=== PATIENT | female | born 2005 | race Two or more races ===

== ENCOUNTER 2025-03-02 10:10 | Emergency (ER) | payer MEDICAID ==
[~2025-03-02] VITALS: Ht 162.6 cm; Wt 58.3 kg
[2025-03-02 10:13] VITALS: TEMP 97.3
[2025-03-02 10:39] LABS: BASOPHILS % (AUTO) 0.1 % (0-1); EOSINOPHILS % (AUTO) 0.2 % (0-6); HEMATOCRIT 40.7 % (35.0-45.0); HEMOGLOBIN 13.7 g/dl (12.0-16.0); LYMPHOCYTES # (AUTO) 1.7 X10'3 (1.1-4.8); LYMPHOCYTES % (AUTO) 16.4 % (21-51); MEAN CORPUSCULAR HEMOGLOBIN 29.3 PG (27.0-31.0); MEAN CORPUSCULAR HGB CONC 33.6 g/dL (33.0-36.5); MONOCYTES # (AUTO) 0.6 X10'3 (0-0.9); MONOCYTES % (AUTO) 5.6 % (2-12); NEUTROPHILS # (AUTO) 8.3 X10'3 (1.8-7.7); NEUTROPHILS % (AUTO) 77.7 % (42-75); PLATELET COUNT 252 X10'3 (140-440); RED BLOOD COUNT 4.68 X10'6 (4.20-5.60); WHITE BLOOD COUNT 10.7 X10'3 (4.5-11.0)
[2025-03-02 10:43] LABS: BILIRUBIN,URINE MODERATE (Neg); CLARITY,URINE CLOUDY (Clear); COLOR,URINE YELLOW (Yellow); GLUCOSE, URINE NEGATIVE (Neg); KETONES,URINE 40 mg/dl (Neg); LEUKOCYTE ESTERASE ,URINE TRACE (Neg); OCCULT BLOOD,URINE NEGATIVE (Neg); PH,URINE 6.5 (4.8-8.0); PROTEIN,URINE 100 mg/dl (Neg)
[2025-03-02 10:49] LABS: NITRITES, URINE NEGATIVE (Neg); UA COLLECTION TYPE CLN CATCH MIDSTREAM
[2025-03-02 10:50] LABS: RBC,URINE 0-2 /HPF (0-2)
[2025-03-02 10:51] LABS: AMORPHOUS URATES 3+; BACTERIA,URINE 1+ /HPF (Neg); MUCUS STRANDS MANY /LPF (Neg); SQUAMOUS EPITHELIAL CELL,UR FEW /LPF (FEW)
[2025-03-02 10:54] LABS: URINE HCG POSITIVE (NEG)
[2025-03-02 11:01] LABS: ALANINE AMINOTRANSFERASE 31 U/L (12-78); ALBUMIN 3.5 G/DL (3.4-5.0); ALBUMIN/GLOBULIN RATIO 0.8 (1.1-1.5); ALKALINE PHOSPHATASE 90 IU/L (46-116); ANION GAP 12 (8-16); ASPARTATE AMINO TRANSFERASE 15 U/L (10-37); BILIRUBIN,TOTAL 0.8 MG/DL (0.1-1.0); BLOOD UREA NITROGEN 5 MG/DL (7-18); BUN/CREATININE RATIO 8.5 (10.0-20.0); CALCIUM 9.4 MG/DL (8.5-10.1); CHLORIDE 104 MMOL/L (99-107); CREATININE 0.59 MG/DL (0.40-0.90); GLUCOSE 124 MG/DL (70-104); LIPASE 27 U/L (16-77); POTASSIUM 3.3 MMOL/L (3.5-5.1); SODIUM 139 MMOL/L (135-145); TOTAL PROTEIN 7.8 G/DL (6.4-8.2); eCRCL 130 ML/MIN; eGFR > 90 ML/MIN
--- NOTE | 2025-03-02 12:03 | Physician Documentation ---
History of Present Illness Chief Complaint: Vomiting Stated Complaint: VOMITING Time Seen by MD: 11:51 Source: patient, family (Partner) HPI 19-year-old presenting for abdominal cramping and nausea and vomiting. Ongoing over the last few weeks. Last menstrual period 1-2 months ago. Also had some scant discharge last week. Cramping rated as mild severity Medication Reconciliation Scheduled PRN ONDANSETRON ODT 4mg tablet (Ondansetron Odt), 1 TAB PO Q6H PRN PRN for nausea/vomiting Review of Systems Constitutional: Denies: fever Respiratory: Denies: shortness of breath, SOB with exertion Cardiovascular: Denies: chest pain Genitourinary: Denies: discharge, dysuria, flank pain Physical Exam Vital Signs: RN Vital Signs have been reviewed: Yes, Temperature: 97.3, Source: Temporal, Heart Rate: 93, Respiratory Rate: 15, BP: 133/90, Pulse Oximetry: 96, Weight: 58.300 Physical Exam Well-appearing no distress resting comfortably in bed Moist mucous membranes Abdomen is soft nontender Awake alert oriented Progress Progress Note Labs independently interpreted show elevated hCG Results/Orders Reviewed/noted all lab results: Yes Results/Orders Orders - GEORGIA KIRK MD Cult Urine + [address] (03/02/25 10:51) Completed Orders - GEORGIA KIRK MD Hcg, Ur Ql (03/02/25 10:15) Cbc/Diff (03/02/25 10:15) BMP (03/02/25 10:15) Lipase (03/02/25 10:15) CMP (03/02/25 10:15) Ua W/Microscopic, Cult If Ind (03/02/25 10:17) Vital Signs 03/02/25 10:13 Temp 97.3 Pulse 93 Resp 15 B/P (MAP) 133/90 Pulse Ox 96 Laboratory Tests Test 03/02/25 10:17 03/02/25 10:27 Urine Specimen Description Cln catch midstream Urine Color Yellow Urine Clarity Cloudy Urine pH 6.5 Urine Specific [place] 1.025 Urine Protein 100 H Urine Glucose (UA) Negative Urine Ketones 40 H Urine Occult Blood Negative Urine Nitrite Negative Urine Bilirubin Moderate Urine Urobilinogen 4.0 H Urine Leukocyte Esterase Trace H Urine RBC 0-2 Urine WBC 5-10 H Urine Squamous Epithelial Cells Few Urine Amorphous Urates 3+ Urine Bacteria 1+ Urine Mucus Many Urine Culture Indicated Indicated Volume Urine Centrifuged 10 ml Urine HCG, Qualitative Positive Urine Comment White Blood Count 10.7 Red Blood Count 4.68 Hemoglobin 13.7 Hematocrit 40.7 Mean Corpuscular Volume 87.0 Mean Corpuscular Hemoglobin 29.3 Mean Corpuscular Hemoglobin Concent 33.6 Red Cell Distribution Width 14.0 Platelet Count 252 Mean Platelet Volume 10.0 Neutrophils (%) (Auto) 77.7 H Lymphocytes (%) (Auto) 16.4 L Monocytes (%) (Auto) 5.6 Eosinophils (%) (Auto) 0.2 Basophils (%) (Auto) 0.1 Neutrophils # (Auto) 8.3 H Lymphocytes # (Auto) 1.7 Monocytes # (Auto) 0.6 Eosinophils # (Auto) 0.0 Basophils # (Auto) 0.0 CBC Comment Sodium Level 139 Potassium Level 3.3 L Chloride Level 104 Carbon Dioxide Level 23.0 L Anion Gap 12 Blood Urea Nitrogen 5 L Creatinine 0.59 Estimated GFR/1.73 m2 > 90 BUN/Creatinine Ratio 8.5 L Glucose Level 124 H Calcium Level 9.4 Total Bilirubin 0.8 Aspartate Amino Transf (AST/SGOT) 15 Alanine Aminotransferase (ALT/SGPT) 31 Alkaline Phosphatase 90 Total Protein 7.8 Albumin 3.5 Globulin 4.3 Albumin/Globulin Ratio 0.8 L Lipase 27 Chemistry Comments Microbiology Date/Time Source Procedure Growth Status 03/02/25 10:51 Urine Clean Catch Midstream Urine Culture - Preliminary Culture received. Resulted Medical Decision Making Additional Comments , ectopic , urinary tract infect Departure Disposition: 01 HOME / SELF CARE / HOMELESS Impression: Primary Impression: First trimester Additional Instructions: Congratulations your with a healthy-appearing 9 week old baby on the ultrasound due date 10/03/2025. Please call [facility] to establish care. Start taking [id number] medications. Try elodia chews or fresh elodia tea to help with your nausea. You may take Unisom and pyridoxine for nausea and vomiting which are available [id number] if elodia is ineffective, use the ondansetron as needed if these don't work. return if you have any worsening of your abdominal pain. Also please be advised that your urinalysis showed a borderline infection.It is likely contaminated from the sample you gave us. We have sent however for urine culture. We will call if the cultures are positive. Referrals: NO PRIMARY CARE PROVIDER (PCP) Prescriptions ONDANSETRON ODT 4mg tablet (ONDANSETRON ODT) 4 Mg Tab.rapdis 1 TAB PO Q6H PRN PRN for nausea/vomiting for 4 Days, #12 TAB 0 Refills Prov: GEORGIA KIRK MD 03/02/25 Signature Scribe Signature: italia Attestation: GEORGIA Ramirez MD Mar 02, 2025 12:03
[2025-03-02] MEDS: ondansetron 4mg rapidly disintigrating tab PO ONE (12:05)
[2025-03-02] MEDS ORDERED: ONDA-243 PO (13:37)
[2025-03-02 13:39] VITALS: BP 121/70; PULSE 81; RESP 18; O2SAT 98
--- NOTE | 2025-03-02 14:13 | RADIOLOGY REPORT ---
OB ULTRASOUND <14 WEEKS: HISTORY: ; vomiting TECHNIQUE: Multiple real-time grayscale sonographic images of the pelvis with duplex Doppler color f low, spectral and M-mode analysis. TRANSDUCERS: Transabdominal. FINDINGS: The uterus measures 12.9 x 7.5 x 8.2 cm. The cervix not well visualized. Right ovary measures 3.3 x 2.5 x 2.7 cm with normal Doppler color flow Left ovary measures 0.3 x 2.5 x 2.7 cm with normal Doppler color flow IUP single live fetus at 2 days average ultrasound age based on mean crown-rump length of 2.8 cm and gestational sac size of 3.6 cm heart rate detected at 179 beats per minute. Yolk sac not seen. IMPRESSION: IUP single live fetus 9 weeks 2 days AUA corresponding to an DIANA of 10/03/2025. No acute abnormality detected.
== END 2025-03-02 14:04 | disposition home or self-care (01) ==
LOC: ER 10:12
DX: O21.8 Other vomiting complicating pregnancy (principal); O26.891 Other specified pregnancy related conditions, first trimester; R10.9 Unspecified abdominal pain; Z3A.09 9 weeks gestation of pregnancy
CPT/HCPCS: 36415; 76801; 80053; 81001; 81025; 83690; 85025; 87088; 99284